=== PATIENT | male | born 1990 ===

== ENCOUNTER 2019-04-01 10:03 | Emergency (ER) | payer SELFPAY ==
[2019-04-01] MEDS ORDERED: NACL 0.9% 1000 ML 1,000 ML IV ONE (10:29)
[2019-04-01] MEDS ORDERED: TORADOL IV ONE (10:29)
--- NOTE | 2019-04-01 10:40 | Emergency Department Report ---
ED General Adult HPI - General Chief complaint: Urogenital-Male Stated complaint: RT SIDE TESTICLE SWELLING/PAIN Time Seen by Provider: 04/01/19 10:17 Source: patient Mode of arrival: Ambulatory Limitations: No Limitations - History of Present Illness Initial comments: 29-year-old Portuguese-speaking male (history obtained in Portuguese) refers right testicular pain radiating to the right flank reminiscent of prior kidney stone pain. He states this morning he felt as if his right testicle was swollen. He has some vague difficulty in urinating but not marguerite dysuria. He denies fever or chills. Pain is moderate in intensity, intermittent. -: Gradual, days(s) (10 PM yesterday) Location: back, genitals, right Radiation: flank Quality: aching Consistency: intermittent Improves with: none Worsens with: none Associated Symptoms: denies other symptoms - Related Data Previous Rx's Medication Instructions Recorded Last Taken Type traMADol [Ultram] 50 mg PO Q6HR PRN #7 tablet 04/01/19 Unknown Rx Allergies Allergy/AdvReac Type Severity Reaction Status Date / Time Sulfa (Sulfonamide Allergy Unknown Verified 04/01/19 10:10 Antibiotics) ED Review of Systems ROS: Stated complaint: RT SIDE TESTICLE SWELLING/PAIN Other details as noted in HPI Constitutional: denies: chills, fever Eyes: denies: eye pain, eye discharge, vision change ENT: denies: ear pain, throat pain Respiratory: denies: cough, shortness of breath, wheezing Cardiovascular: denies: chest pain, palpitations Endocrine: no symptoms reported Gastrointestinal: denies: abdominal pain, nausea, diarrhea Genitourinary: as per HPI. denies: urgency Musculoskeletal: denies: back pain, joint swelling, arthralgia Skin: denies: rash, lesions Neurological: denies: headache, weakness, paresthesias Psychiatric: denies: anxiety, depression Hematological/Lymphatic: denies: easy bleeding, easy bruising ED Past Medical Hx - Past Medical History Previous Medical History?: No - Surgical History Past Surgical History?: No - Social History Substance Use Type: None - Medications Home Medications: Home Medications Medication Instructions Recorded Confirmed Last Taken Type traMADol [Ultram] 50 mg PO Q6HR PRN #7 tablet 04/01/19 Unknown Rx ED Physical Exam - General Limitations: No Limitations General appearance: alert, in no apparent distress - Head Head exam: Present: atraumatic, normocephalic - Eye Eye exam: Present: normal appearance. Absent: scleral icterus - ENT ENT exam: Present: mucous membranes moist - Neck Neck exam: Present: normal inspection - Respiratory Respiratory exam: Present: normal lung sounds bilaterally. Absent: respiratory distress - Cardiovascular Cardiovascular Exam: Present: regular rate, normal rhythm. Absent: systolic murmur, diastolic murmur, rubs, gallop - GI/Abdominal GI/Abdominal exam: Present: soft, normal bowel sounds. Absent: distended, tenderness, guarding, rebound, rigid - Rectal Rectal exam: Present: deferred - exam: Present: normal inspection, circumcision, other (normal testicular lie). Absent: testicular tenderness, urethral discharge, scrotal swelling - Extremities Exam Extremities exam: Present: normal inspection - Back Exam Back exam: Present: normal inspection. Absent: CVA tenderness (R), CVA tenderness (L) - Neurological Exam Neurological exam: Present: alert, oriented X3, CN II-XII intact. Absent: motor sensory deficit - Psychiatric Psychiatric exam: Present: normal affect, normal mood - Skin Skin exam: Present: warm, dry, intact, normal color. Absent: rash ED Course Vital Signs 04/01/19 10:36 Temperature 97.8 F Pulse Rate 65 Respiratory 18 Rate Blood Pressure 119/72 O2 Sat by Pulse 100 Oximetry - Reevaluation(s) Reevaluation #1: Patient comfortable without pain on reexam. He is appropriate for outpatient management. Perhaps he passed a kidney stone since he does have some hematuria. Follow up with urologist as recommended. 04/01/19 12:59 ED Medical Decision Making - Lab Data Result diagrams: 04/01/19 10:32 04/01/19 10:32 Laboratory Results - last 24 hr 04/01/19 04/01/19 04/01/19 10:15 10:32 10:32 WBC 5.0 RBC 4.40 Hgb 14.2 Hct 41.1 MCV 94 MCH 32 MCHC 35 H RDW 13.5 Plt Count 253 Lymph % (Auto) 30.1 [place] % (Auto) 8.3 H Eos % (Auto) 2.2 Baso % (Auto) 1.1 Lymph # 1.5 [place] # 0.4 Eos # 0.1 Baso # 0.1 Seg Neutrophils % 58.3 Seg Neutrophils # 2.9 Sodium 141 Potassium 3.7 Chloride 105.7 Carbon Dioxide 24 Anion Gap 15 BUN 17 Creatinine 0.9 Estimated GFR > 60 BUN/Creatinine Ratio 19 Glucose 102 H Calcium 9.0 Urine Color Yellow Urine Turbidity Hazy Urine pH 7.0 Ur Specific [place] 1.018 Urine Protein 30 mg/dl Urine Glucose (UA) Neg Urine Ketones Neg Urine Blood Lg Urine Nitrite Neg Urine Bilirubin Neg Urine Urobilinogen < 2.0 Ur Leukocyte Esterase Neg Urine WBC (Auto) 6.0 Urine RBC (Auto) > 182.0 Urine Mucus Few Urine Sperm Few - Radiology Data Radiology results: report reviewed (incidental left kidney stone. Otherwise normal ultrasound/Doppler) Critical care attestation.: If time is entered above; I have spent that time in minutes in the direct care of this critically ill patient, excluding procedure time. ED Disposition Clinical Impression: Flank pain, Hematuria, microscopic Disposition: DC-01 TO HOME OR SELFCARE Is pt being admited?: No Does the pt Need Aspirin: No Condition: Stable Instructions: Acute Hematuria (ED) Additional Instructions: Follow-up with the urologist is recommended. Return to the emergency department any acute change or problem. Prescriptions: traMADol [Ultram] 50 mg PO Q6HR PRN #7 tablet PRN Reason: Pain Referrals: [facility] [Provider Group] - 3-5 Days Time of Disposition: 13:00
[2019-04-01 10:42] LABS: Basophils # (Auto) 0.1 K/mm3 (0.0-0.1); Basophils % (Auto) 1.1 % (0.0-1.8); Eosinophils # (Auto) 0.1 K/mm3 (0.0-0.4); Eosinophils % (Auto) 2.2 % (0.0-4.3); Hematocrit 41.1 % (35.5-45.6); Hemoglobin 14.2 gm/dl (11.8-15.2); Lymphocytes # (Auto) 1.5 K/mm3 (1.2-5.4); Lymphocytes % (Auto) 30.1 % (13.4-35.0); Mean Corpuscular HGB Conc 35 % (32-34); Mean Corpuscular Volume 94 fl (84-94); Monocytes # (Auto) 0.4 K/mm3 (0.0-0.8); Monocytes % (Auto) 8.3 % (0.0-7.3); Platelet Count 253 K/mm3 (140-440); Red Cell Distribution Width 13.5 % (13.2-15.2)
[2019-04-01 11:12] LABS: BUN/Creatinine Ratio 19; Blood Urea Nitrogen 17 mg/dL (9-20); Hemolysis Index 10
[2019-04-01 11:14] LABS: Bilirubin,Urine NEG (Negative); Blood,Urine LG (Negative); Color,Urine Yellow (Yellow); Mucus,Urine FEW /HPF; Sperm,Urine FEW /HPF (NP); Urobilinogen,Urine < 2.0 mg/dL (<2.0)
[2019-04-01 11:15] LABS: RBC,Urine > 182.0 /HPF (0.0-6.0)
--- NOTE | 2019-04-01 12:22 | Ultrasound Report ---
ULTRASOUND TESTICULAR DOPPLER COMPLETE HISTORY: Right testicular swelling and pain TECHNIQUE: Transcranial grayscale ultrasound with color and spectral Doppler imaging. FINDINGS: Both testicles and epididymides are normal size, contour and echotexture. The right testicle measures 5.7 x 2.5 x 3.5 cm. The left testicle measures 5.7 x 2.8 x 3.5 cm. No evidence for testicular mass, calcifications or hyperemia. 2 tiny cysts are noted in the left epididymal head measuring up to 3 mm. No significant hydrocele or varicocele. Spectral Doppler waveforms demonstrate arterial flow to both testicles. IMPRESSION: Unremarkable testicular ultrasound. Signer Name: Daniel Carcamo Jr, MD Signed: 04/01/2019 12:18 PM Workstation Name: [id number]
--- NOTE | 2019-04-01 12:24 | Ultrasound Report ---
ULTRASOUND RENAL INDICATION / CLINICAL INFORMATION: Right flank pain. COMPARISON: None available. FINDINGS: RIGHT KIDNEY: Length = 13.2 cm. [normal > 9 cm] - Parenchymal Thickness = 1.4 cm. [normal > 1.5 cm] - Echogenicity: Normal. - Hydronephrosis: None. - Cyst or mass: No significant abnormality. - Stones: None seen. LEFT KIDNEY: Length = 12.9 cm. [normal > 9 cm] - Parenchymal Thickness = 1.6 cm. [normal > 1.5 cm] - Echogenicity: Normal. - Hydronephrosis: None. - Cyst or mass: 7 mm cyst is noted in the inferior left kidney - Stones: None seen. URINARY BLADDER: No significant abnormality. FREE FLUID: None. ADDITIONAL FINDINGS: None. IMPRESSION: No significant abnormality. Signer Name: Daniel Carcamo Jr, MD Signed: 04/01/2019 12:19 PM Workstation Name: [id number]
[2019-04-01 13:20] VITALS: BP 124/74
== END 2019-04-01 13:55 | disposition home or self-care (01) ==
LOC: EDBD → ED 10:03
DX: N50.811 Right testicular pain (principal); R31.9 Hematuria, unspecified; Z79.899 Other long term (current) drug therapy; Z88.2 Allergy status to sulfonamides
CPT/HCPCS: 36415; 76770; 80048; 81001; 85025; 93975; 96374; 99284; J1885; J7030